=== PATIENT | male | born 1960 | race Caucasian/White ===

== ENCOUNTER 2018-03-12 10:43 | Observation (INO) | payer MEDICARE, OTHER, MEDICAID ==
[2018-03-12 11:07] LABS: ADD MAN DIFF? NO
[2018-03-12 11:09] LABS: BASOPHIL # 0.1 10^3/ul (0.0-0.1); BASOPHILS % 0.4 % (0.0-2.0); EOSINOPHILS # 0.3 10^3/ul (0.0-0.5); EOSINOPHILS % 2.3 % (0.0-7.0); HEMATOCRIT 55.7 % (42.0-52.0); HEMOGLOBIN 18.8 g/dl (14.0-18.0); LYMPHOCYTES # 2.1 10^3/ul (0.8-2.9); LYMPHOCYTES % 15.5 % (15.0-51.0); MEAN CORPUSCULAR HEMOGLOBIN 29.7 pg (29.0-33.0); MEAN CORPUSCULAR HGB CONC 33.8 g/dl (32.0-37.0); MEAN CORPUSCULAR VOLUME 87.9 fl (82.0-101.0); MONOCYTES % 7.8 % (0.0-11.0); NEUTROPHIL # 9.9 10^3/ul (1.6-7.5); NEUTROPHILS % 73.7 % (39.0-77.0); PLATELET COUNT 294 10^3/UL (140-415); RED BLOOD COUNT 6.34 10^6/ul (4.70-6.10); RED CELL DISTRIBUTION WIDTH 15.5 % (11.5-14.5)
[2018-03-12 11:09] LABS: WHITE BLOOD COUNT 13.4 10^3/ul (4.8-10.8)
[2018-03-12] MEDS: NITROGLYCERIN (SL) 0.4 MG TAB SL (11:31)
[2018-03-12] MEDS: NITROGLYCERIN 2% 1 GM OINT PKT TD (11:32)
[2018-03-12] MEDS: LORAZEPAM 2 MG INJ IV (11:32)
[2018-03-12] MEDS: ASPIRIN 81 MG TAB PO (11:32)
[2018-03-12 11:33] LABS: ANION GAP 12 (5-13); BLOOD UREA NITROGEN 22 mg/dl (7-20); CALCIUM 10.2 mg/dl (8.4-10.2); CARBON DIOXIDE 31 mmol/L (21-31); CHLORIDE 101 mmol/L (97-110); CREATININE 1.26 mg/dl (0.61-1.24); Estimated GFR 59 mL/min (>60); GLUCOSE 110 mg/dl (70-220); POTASSIUM 4.9 mmol/L (3.5-5.1); SODIUM 144 mmol/L (135-144)
[2018-03-12 11:44] LABS: TROPONIN-I 0.046 ng/ml (0.000-0.120)
[2018-03-12] MEDS ORDERED: ONDANSETRON 4 MG INJ IV (12:00)
[2018-03-12] MEDS ORDERED: ACETAMINOPHEN 325 MG TAB PO ×2 (12:00→12:30)
[2018-03-12 12:30] LABS: HDL CHOLESTEROL 46 mg/dl (28-71); LDL CHOLESTEROL,CALCULATED 171 mg/dl; TRIGLYCERIDES 78 mg/dl (0-149)
[2018-03-12 12:30] LABS: CHOLESTEROL 233 mg/dl (100-200)
[2018-03-12] MEDS: SOD CHLORIDE 0.9% 1,000 ML IV (12:30)
[2018-03-12] MEDS ORDERED: NITROGLYCERIN (SL) 0.4 MG TAB SL (12:30)
[2018-03-12] MEDS ORDERED: HYDROCODONE/APAP (5/325) TAB PO (12:30)
[2018-03-12] MEDS ORDERED: morphine SULFATE/PF (2 MG/2 ML) SYG IV (12:30)
[2018-03-12] MEDS ORDERED: NACL 0.9% 3 ML SYG IV (12:30)
[2018-03-12] MEDS ORDERED: ALBUTEROL/IPRATROPIUM (NEB) 3 ML AMP HHN (13:00)
[2018-03-12] MEDS: AZITHROMYCIN 500MG/NS (PMX) 250 ML IVPB (13:28)
[2018-03-12] MEDS: BUDESONIDE (NEB) 0.5MG/2ML AMP HHN ×2 (15:29→20:13)
[2018-03-12] MEDS: ALBUTEROL/IPRATROPIUM (NEB) 3 ML AMP HHN ×2 (15:30→20:13)
[2018-03-12 17:43] LABS: CREATINE KINASE 202 IU/L (23-200)
[2018-03-12 17:55] LABS: CK INDEX 1.4; TROPONIN-I 0.044 ng/ml (0.000-0.120)
[2018-03-12 17:56] LABS: CK-MB 2.87 ng/ml (0.0-2.4)
[2018-03-12] MEDS: ATORVASTATIN 80 MG TAB PO (20:51)
[2018-03-12] MEDS: traZODone 50 MG TAB PO (20:52)
[2018-03-12 23:21] LABS: CREATINE KINASE 171 IU/L (23-200)
[2018-03-12 23:37] LABS: CK INDEX 1.4; CK-MB 2.39 ng/ml (0.0-2.4); TROPONIN-I 0.057 ng/ml (0.000-0.120)
[2018-03-13 06:28] LABS: ADD MAN DIFF? NO
[2018-03-13 06:35] LABS: WHITE BLOOD COUNT 12.6 10^3/ul (4.8-10.8)
[2018-03-13 06:35] LABS: BASOPHILS % 0.3 % (0.0-2.0); EOSINOPHILS # 0.4 10^3/ul (0.0-0.5); EOSINOPHILS % 3.2 % (0.0-7.0); HEMOGLOBIN 16.8 g/dl (14.0-18.0); LYMPHOCYTES # 2.6 10^3/ul (0.8-2.9); LYMPHOCYTES % 20.4 % (15.0-51.0); MEAN CORPUSCULAR HGB CONC 33.6 g/dl (32.0-37.0); MEAN CORPUSCULAR VOLUME 89.3 fl (82.0-101.0); MEAN PLATELET VOLUME 9.6 fl (7.4-10.4); MONOCYTE # 1.2 10^3/ul (0.3-0.9); MONOCYTES % 9.1 % (0.0-11.0); NEUTROPHIL # 8.4 10^3/ul (1.6-7.5); NEUTROPHILS % 66.4 % (39.0-77.0); PLATELET COUNT 285 10^3/UL (140-415); RED CELL DISTRIBUTION WIDTH 15.9 % (11.5-14.5)
[2018-03-13 06:55] LABS: ALANINE AMINOTRANSFERASE 53 IU/L (13-69); ALBUMIN 4.2 g/dl (3.3-4.9); ALBUMIN/GLOBULIN RATIO 1.68; ALKALINE PHOSPHATASE 63 IU/L (42-121); ANION GAP 11 (5-13); ASPARTATE AMINO TRANSFERASE 30 IU/L (15-46); BILIRUBIN,INDIRECT 0.1 mg/dl (0-1.1); BILIRUBIN,TOTAL 0.1 mg/dl (0.2-1.3); BLOOD UREA NITROGEN 27 mg/dl (7-20); CALCIUM 9.8 mg/dl (8.4-10.2); CARBON DIOXIDE 28 mmol/L (21-31); CHLORIDE 106 mmol/L (97-110); CREATININE 1.27 mg/dl (0.61-1.24); Estimated GFR 58 mL/min (>60); GLUCOSE 103 mg/dl (70-220); MAGNESIUM 2.1 mg/dl (1.7-2.5); POTASSIUM 4.8 mmol/L (3.5-5.1); SODIUM 145 mmol/L (135-144); TOTAL PROTEIN 6.7 g/dl (6.1-8.1)
[2018-03-13 07:28] LABS: THYROID STIMULATING HORMONE 0.124 MIU/L (0.465-4.680)
[2018-03-13] MEDS: ALBUTEROL/IPRATROPIUM (NEB) 3 ML AMP HHN (07:35)
[2018-03-13] MEDS: BUDESONIDE (NEB) 0.5MG/2ML AMP HHN (07:36)
[2018-03-13] MEDS: LOSARTAN 25 MG TAB PO (08:19)
[2018-03-13] MEDS: ASPIRIN 81 MG TAB PO (08:19)
[2018-03-13] MEDS: GUAIFENESIN/CODEINE 5ML CUP PO (08:20)
[2018-03-13 08:24] LABS: HEMOGLOBIN A1C 5.1 % (0-5.9)
[2018-03-13] MEDS ORDERED: TESTOSTERONE 1% GEL 5 GM PACKET TOP (09:00)
[2018-03-13] MEDS: INFLUENZA VIRUS VACCINE 0.5 ML (DISPENSING) IM* (10:47)
== END 2018-03-13 11:30 | disposition home or self-care (01) ==
LOC: E/R 10:43 → TEL 12:00
DX: J98.8 Other specified respiratory disorders (principal); I10 Essential (primary) hypertension; E78.5 Hyperlipidemia, unspecified; F17.200 Nicotine dependence, unspecified, uncomplicated; R94.39 Abnormal result of other cardiovascular function study; D75.1 Secondary polycythemia; F55.3 Abuse of steroids or hormones
CPT/HCPCS: 36415; 71045; 80048; 80053; 80061; 82550; 82553; 83036; 83735; 84443; 84484; 85025; 90686; 93005; 93306; 94640; 94664; 96374; 99285-25; G0378